=== PATIENT | male | born 1975 | race Caucasian/White ===

== ENCOUNTER 2019-03-10 17:26 | Emergency (ER) | payer BC ==
[~2019-03-10] VITALS: Ht 182.9 cm; Wt 104.3 kg
[2019-03-10 17:35] VITALS: BP_SYST 152
--- NOTE | 2019-03-10 17:35 | NUR ---
Patient triaged and placed in waiting room. VSS and patient appears in no acute distress at this time. Accompanied by SELF, awaiting available bed, and MD notified of need for MSE.
[2019-03-10 18:37] LABS: CALCIUM 9.6 mg/dL (8.4-11.0); CREATININE 0.98 mg/dL (0.55-1.30)
[2019-03-10 18:40] LABS: BASOPHILS # (AUTO) 0.1 K/uL (0.0-0.2); EOSINOPHILS # (AUTO) 0.3 K/uL (0.0-0.4); EOSINOPHILS % (AUTO) 3.1 % (0.0-4.0); HEMATOCRIT 50.4 % (36-54); HEMOGLOBIN 17.8 g/dL (14.0-18.0); LYMPHOCYTES # (AUTO) 2.6 K/uL (1.0-5.5); LYMPHOCYTES % (AUTO) 28.2 % (20.5-51.5); MEAN CORPUSCULAR HEMOGLOBIN 31 pg (27-31); MEAN CORPUSCULAR HGB CONC 35 % (32-36); MEAN CORPUSCULAR VOLUME 89 fL (79.0-98.0); MONOCYTES % (AUTO) 10.4 % (1.7-9.3); NEUTROPHILS # (AUTO) 5.3 K/uL (1.8-7.7); NEUTROPHILS % (AUTO) 57.3 % (40.0-70.0); PLATELET COUNT (AUTO) 235 K/uL (130-430); RED BLOOD CELL COUNT(AUTO) 5.67 MIL/uL (4.2-6.2); WHITE BLOOD COUNT (AUTO) 9.3 K/uL (4.8-10.8)
[2019-03-10 18:43] LABS: ALBUMIN 4.3 g/dL (3.4-4.8); TOTAL BILIRUBIN 0.6 mg/dL (0.0-1.0)
--- NOTE | 2019-03-10 21:18 | NUR ---
Pt ambulatory to bed 5 for evaluation
--- NOTE | 2019-03-10 21:30 | NUR ---
Pt came to the ED for hyperglycemia today. Reports he woke up dizzy and checked his blood sugar athome and was in the 400s. Reports that he takes metformin at home. Denies n/v/d or fever currently in ED. No other complaints/injuries noted. Will cont. to monitor
--- NOTE | 2019-03-10 22:20 | NUR ---
Recheck on blood sugar is 294.
--- NOTE | 2019-03-10 22:40 | NUR ---
Urine specimen collected and dipped.
[2019-03-10 23:00] VITALS: BP_SYST 150
--- NOTE | 2019-03-10 23:00 | NUR ---
Patient given written and verbal discharge instructions and verbalizes understanding. ER MD Dr. Thibodeaux discussed with patient the results and treatment provided. Patient in stable condition. ID arm band removed. Patient educated on pain management and to follow up with PMD. Pain Scale 0/10. Opportunity for questions provided and answered. Medication side effect fact sheet provided.
== END 2019-03-10 23:00 | disposition home or self-care (01) ==
LOC: SED 17:26
DX: E11.65 Type 2 diabetes mellitus with hyperglycemia (principal); I10 Essential (primary) hypertension
CPT/HCPCS: 36415; 80053; 81002; 82962; 85025; 99283